=== PATIENT | female | born 2000 | race Caucasian/White ===

== ENCOUNTER 2020-08-07 15:38 | Emergency (ER) | payer MEDICAID ==
[~2020-08-07] VITALS: Ht 162.6 cm; Wt 138.3 kg
[2020-08-07 15:45] VITALS: Ht 162.6 cm; Wt 138.3 kg
[2020-08-07 17:18] VITALS: BP 141/70
== END 2020-08-07 17:18 | disposition home or self-care (01) ==
LOC: ED 15:38
DX: S61.532A Puncture wound without foreign body of left wrist, initial encounter (principal); S61.431A Puncture wound without foreign body of right hand, initial encounter; S61.234A Puncture wound without foreign body of right ring finger without damage to nail, initial encounter; W55.01XA Bitten by cat, initial encounter; Y93.89 Activity, other specified; Y92.89 Other specified places as the place of occurrence of the external cause; Y99.8 Other external cause status
CPT/HCPCS: 90715; Q0092